=== PATIENT | female | born 1980 | race Caucasian/White ===

== ENCOUNTER 2018-07-07 18:05 | Emergency (ER) | payer OTHER ==
[2018-07-07 18:30] LABS: Hemoglobin 12.6 g/dL (12.0-16.0); Mean Corpuscular HGB CONC 34.4 g/dL (32.0-36.0); Mean Corpuscular Hemoglobin 31.9 pg (27.0-31.0); Mean Corpuscular Volume 92.7 fL (78.0-98.0); Mean Platelet Volume 7.8 fL (7.4-10.4); Platelet Count 252 thou/uL (130-400); RBC Distribution Width 11.8 % (11.5-14.5); Red Blood Cell (RBC) Count 3.95 mill/uL (4.20-5.40); White Blood Cell (WBC) Count 9.4 thou/uL (4.8-10.8)
[2018-07-07 18:48] LABS: Lymphocytes 15 % (21-51); MDiff Complete? YES; Monocytes 1 % (0-10); Neutrophil 84 % (42-75); PLT Morphology Comment Appears Adequate; RBC Morphology Normal; Vacuoles SLIGHT
[2018-07-07 19:01] LABS: ALT (SGPT) 7 U/L (8-55); AST (SGOT) 12 U/L (5-34); Albumin 4.5 g/dL (3.5-5.0); Alkaline Phosphatase 59 U/L (40-150); Anion Gap 12 mmol/L (10-20); BUN (Urea Nitrogen) 13 mg/dL (7.0-18.7); Bilirubin, Total 0.8 mg/dL (0.2-1.2); Calc. Creatinine Clearance 0 mL/min (70-130); Calcium 9.4 mg/dL (7.8-10.44); Carbon Dioxide 24 mmol/L (22-29); Chloride 106 mmol/L (98-107); Estimated GFR-MDRD 59; Globulin 2.8 g/dL (2.4-3.5); Glucose 121 mg/dL (70-105); Lipase 27 U/L (8-78); Potassium 3.9 mmol/L (3.5-5.1); Protein, Total 7.3 g/dL (6.0-8.3); Sodium 138 mmol/L (136-145)
[2018-07-07 19:10] LABS: BHCG - Serum Negative (NEGATIVE); Pregs Control Background? CLEAR/WHITE (CLR/WHITE); Pregs Control Bar Appear? YES (CONTROL BAR)
[2018-07-07] MEDS ORDERED: Ketorolac Tromethamine 30 MG/ML VIAL ONE (19:17)
--- NOTE | 2018-07-07 20:29 | ULT ---
GALLBLADDER ULTRASOUND: 07/07/18 HISTORY: Pain. Right flank pain. COMPARISON: None. TECHNIQUE: Utilizing a multihertz transducer, sonographic imaging of the right upper quadrant is performed in th e longitudinal and transverse plane. FINDINGS: Hepatic parenchyma has a normal echotexture. No hepatic masses or intrahepatic biliary dilatation. Co ntour of the hepatic margin is maintained. Right hepatic lobe measures 17.6 cm. Main portal vein is patent. Appropriate directional flow. No sonographic evidence of cholelithiasis, gallbladder wall thickening or pericholecystic fluid. Nega tive Harper's sign. Common bile duct diameter is 0.4 cm. There is mild to moderate hydronephrosis, with regards to the ri ght kidney. Overall, right kidney measures 4.2 x 9.3 x 4.9 cm. Postvoid imaging of the right kidney s till demonstrates mild dilatation of the intrarenal collecting system. IMPRESSION: 1. Persistent right sided hydronephrosis. 2. No sonographic evidence of cholelithiasis or cholecystitis. POS: PPP
--- NOTE | 2018-07-07 20:41 | CT ---
CT ABDOMEN AND PELVIS WITHOUT CONTRAST STONE PROTOCOL 07/07/18 HISTORY: Pain. COMPARISON: None. FINDINGS: Lung bases are clear. No pericardial effusion. Intrauterine device is present. There is mild right si ded hydronephrosis. No distal obstructing calculus is appreciated. No nephroureterolithiasis. No left sided hydronephrosis. No acute osseous abnormality. The appendix is not well seen. IMPRESSION: 1. Mild right sided hydronephrosis without distal obstructing calculus. This may be sequela of a recently passed stone. 2. Nonvisualization of the appendix, although there are no secondary signs of acute appendicitis . POS: SHADI
[2018-07-07] MEDS ORDERED: Morphine 4 MG/ML VIAL ONE ×2 (21:10→22:41)
[2018-07-07] MEDS ORDERED: Ondansetron HCl/PF 4 MG/2 ML Vial ONE (21:15)
[2018-07-07 22:43] LABS: Bacteria/HPF Rare-Few HPF (None Seen); Bilirubin Negative (Negative); Blood, Urine Negative (Negative); Clarity TURBID (Clear); Glucose, Urine (Dipstick) Negative (Negative); Leukocyte Trace (Negative); Nitrite Negative (Negative); Pathc Cast-AUWi Flag 2.32 (0-2.49); Protein, Urine (Dipstick) Trace mg/dL (Neg-Trace); Specific Gravity, Urine 1.025 (1.002-1.036); Urobilinogen 0.2 mg/dL (0.2-1.0); pH, Urine 8.5 (5.0-9.0)
[2018-07-07 22:53] LABS: RBC/HPF 0-3 HPF (0-3)
[2018-07-07 22:54] LABS: Hyaline Casts/LPF 0-3 HYALINE CAST LPF (0-3 Hyaline)
[2018-07-07] MEDS ORDERED: traMADol HCl 50 MG TAB ONE (23:39)
== END 2018-07-07 23:45 | disposition home or self-care (01) ==
LOC: ERS 18:05
DX: R10.9 Unspecified abdominal pain (principal)
CPT/HCPCS: 36415; 74176; 76705; 80053; 81003; 81015; 83690; 84703; 85025; 96374; 96375; 96376; J1885; J2270; J2405

== ENCOUNTER 2019-05-11 08:03 | Outpatient (CLI) | payer OTHER ==
--- NOTE | 2019-05-11 08:36 | ULT ---
ABDOMINAL ULTRASOUND HISTORY: Abdominal pain. FINDINGS: Liver: Within normal limits. Gallbladder: No gallbladder calculi are visualized. There is no gallbladder wall thickening or perich olecystic fluid. Common duct: Common duct is normal in caliber measuring measuring 0.3 cm in diameter. Pancreas: The limited visualized pancreas demonstrates a normal sonographic appearance. IVC: Limited visualized IVC has a normal sonographic appearance. Aorta: The aorta is normal in caliber. Spleen: Within normal limits. Kidneys: Kidneys demonstrate a normal sonographic appearance bilaterally with the right kidney measur ing 9.1 cm in length, and the left kidney measures 9.6 cm in length. IMPRESSION: Abdominal ultrasound is within normal limits. No gallbladder calculi are seen
== END 2019-05-11 08:04 | disposition home or self-care (01) ==
LOC: SCSULT 08:03
PROVIDERS: ATTEND Family Medicine
DX: R10.11 Right upper quadrant pain (principal); Z87.442 Personal history of urinary calculi
CPT/HCPCS: 76700

== ENCOUNTER 2024-08-23 07:30 | Outpatient (CLI) | payer BC | END 2024-08-23 07:31 | disposition home or self-care (01) | LOC: SCSMRI 07:30 | PROVIDERS: ATTEND Student in an Organized Health Care Education/Training Program | DX: M24.812 Other specific joint derangements of left shoulder, not elsewhere classified (principal); M75.112 Incomplete rotator cuff tear or rupture of left shoulder, not specified as traumatic ==

== ENCOUNTER 2024-09-20 15:58 | Outpatient (CLI) | payer BC ==
[2024-09-20 16:41] LABS: #Basophils Less than 0.03 10x3/uL (0.0-0.2); %Basophils 0.3 % (0.0-1.0); %Eosinophils 1.1 % (0.0-10.0); %Lymphocytes 22.2 % (21.0-51.0); %Monocytes 5.9 % (0.0-10.0); %Neutrophils 70.4 % (42.0-75.0); Hematocrit 37.9 % (36.0-47.0); Hemoglobin 12.6 g/dL (12.0-16.0); Mean Corpuscular HGB CONC 33.2 g/dL (32.0-36.0); Mean Corpuscular Hemoglobin 30.5 pg (27.0-31.0); Mean Corpuscular Volume 91.8 fL (78.0-98.0); Mean Platelet Volume 10.3 fL (7.4-10.4); Platelet Count 277 10x3/uL (130-400); Red Blood Cell (RBC) Count 4.13 mill/uL (4.20-5.40)
[2024-09-20 16:48] LABS: BHCG - Serum Negative (NEGATIVE); Pregs Control Background? CLEAR/WHITE (CLR/WHITE); Pregs Control Bar Appear? YES (CONTROL BAR)
== END 2024-09-20 15:59 | disposition home or self-care (01) ==
LOC: LABBT 15:58
PROVIDERS: ATTEND Orthopaedic Surgery
DX: Z01.818 Encounter for other preprocedural examination (principal); M67.431 Ganglion, right wrist
CPT/HCPCS: 84703; 85025; 93005; 93010

== ENCOUNTER 2024-09-22 06:08 | Day surgery (SDC) | payer BC ==
[2024-09-20 16:17] VITALS: BMI 29.2
[2024-09-22] MEDS ORDERED: Midazolam HCl 2 mg/2 ml Vial ONE ×2 (06:55→06:58)
[2024-09-22] MEDS ORDERED: Lidocaine 1% (PF) 30 ML VIAL ONE (06:56)
[2024-09-22] MEDS ORDERED: Lidocaine 1% PF 5 ML VIAL ONE (06:58)
[2024-09-22] MEDS ORDERED: Ondansetron PF 4 MG/2 ML Vial ONE (06:58)
[2024-09-22] MEDS ORDERED: Dexamethasone 4 mg/ml Vial ONE (06:58)
[2024-09-22] MEDS ORDERED: fentaNYL PF 100 MCG/2 ML SYRINGE ONE (06:58)
[2024-09-22] MEDS ORDERED: PROPOFOL 20 ML ONE (06:58)
[2024-09-22] MEDS ORDERED: CEFAZOLIN 2 GM VIAL ONE (07:12)
[2024-09-22] MEDS ORDERED: fentaNYL 50 mcg/mL 1 mL Vial ONE (08:54)
[2024-09-22] MEDS ORDERED: HYDROcodone/Acetaminophen 5/325 mg Tablet ONE (09:41)
== END 2024-09-22 11:07 | disposition home or self-care (01) ==
LOC: SDC 06:08
PROVIDERS: ATTEND Orthopaedic Surgery
PROC: 0RBN0ZZ Excision of Right Wrist Joint, Open Approach (ICD-10-PCS; principal; 2024-09-22)
DX: M67.431 Ganglion, right wrist (principal); I10 Essential (primary) hypertension; F41.9 Anxiety disorder, unspecified; G43.909 Migraine, unspecified, not intractable, without status migrainosus; Z90.49 Acquired absence of other specified parts of digestive tract; Z86.16 Personal history of COVID-19; Z98.890 Other specified postprocedural states; Z79.1 Long term (current) use of non-steroidal anti-inflammatories (NSAID); Z79.899 Other long term (current) drug therapy
CPT/HCPCS: 88304; A6223; J1100; J2250; J2405; J2704; J3010